=== PATIENT | male | born 1995 | race Caucasian/White ===

== ENCOUNTER 2024-03-13 21:05 | Emergency (ER) | payer OTHER, SELFPAY ==
[2024-03-13] MEDS ORDERED: Fluorescein Opthalmic Strip ONE (21:49)
[2024-03-13] MEDS ORDERED: Proparacaine 0.5% Opth 15 ML BOT ONE (21:49)
[2024-03-13 22:31] LABS: #Basophils 0.03 10x3/uL (0.0-0.2); %Basophils 0.5 % (0.0-1.0); %Eosinophils 0.9 % (0.0-10.0); %Lymphocytes 28.3 % (21.0-51.0); %Monocytes 6.7 % (0.0-10.0); %Neutrophils 63.4 % (42.0-75.0); Hematocrit 39.4 % (42.0-52.0); Hemoglobin 14.1 g/dL (14.0-18.0); Mean Corpuscular HGB CONC 35.8 g/dL (32.0-36.0); Mean Corpuscular Hemoglobin 31.5 pg (27.0-31.0); Mean Corpuscular Volume 88.1 fL (78.0-98.0); Mean Platelet Volume 10.6 fL (7.4-10.4); Platelet Count 200 10x3/uL (130-400); RBC Distribution Width 12.7 % (11.5-14.5); Red Blood Cell (RBC) Count 4.47 mill/uL (4.70-6.10)
[2024-03-13] MEDS ORDERED: Boostrix 0.5 ML (Tdap) VIAL (>/=7 yrs of age) ONE (22:40)
[2024-03-13] MEDS ORDERED: Sodium Chloride 0.9% 100 ML ONE (22:46)
[2024-03-13] MEDS ORDERED: Cefepime 2 GM VIAL ONE (22:46)
[2024-03-13 23:20] LABS: ALT (SGPT) 77 U/L (8-55); AST (SGOT) 30 U/L (5-34); Albumin 4.3 g/dL (3.5-5.0); Alkaline Phosphatase 64 U/L (40-110); Anion Gap 15 mmol/L (10-20); BUN (Urea Nitrogen) 16 mg/dL (8.9-20.6); Bilirubin, Total 0.6 mg/dL (0.2-1.2); Calc. Creatinine Clearance 0 mL/min (70-130); Calcium 9.3 mg/dL (7.8-10.44); Carbon Dioxide 24 mmol/L (22-29); Chloride 107 mmol/L (98-107); Estimated GFR 109; Globulin 2.7 g/dL (2.4-3.5); Glucose 96 mg/dL (70-105); Potassium 3.6 mmol/L (3.5-5.1); Sodium 142 mmol/L (136-145)
[2024-03-13] MEDS ORDERED: LevoFLOXacin 750 mg/D5W 150 ml Premix Bag ONE (23:42)
[2024-03-14] MEDS ORDERED: Moxifloxacin 0.5% Opth Drop 3 ML BOT L EYE SCH (00:45)
[2024-03-14] MEDS ORDERED: Vancomycin (BATCH) 2 GM in Premix 1 BAG IVPB SCH (01:00)
== END 2024-03-14 05:56 | disposition home or self-care (01) ==
LOC: ERS 21:05
DX: S05.92XA Unspecified injury of left eye and orbit, initial encounter (principal); X58.XXXA Exposure to other specified factors, initial encounter; Y93.89 Activity, other specified; Z23 Encounter for immunization; Z55.6 Problems related to health literacy
CPT/HCPCS: 36415; 70480; 80053; 85025; 90471; 90715; 96374; 96375; J0692; J1956; J3370; J3490